=== PATIENT | male | born 1995 ===

== ENCOUNTER 2019-01-15 13:10 | Emergency (ER) | payer MEDICAID, OTHER ==
--- NOTE | 2019-01-15 14:54 | ED PDOC ---
HPI: Abdomen Additional Complaint(s): 12:22pm: PA review done on CT scan results, Pt called twice unsuccessfully including next of kins, left message with call back information to notify pt of official CT results. <Trinidad Kimball - Last Filed: 01/16/19 12:21> Chief Complaint (Provider): Abdominal Pain History Per: Patient History/Exam Limitations: no limitations Onset/Duration Of Symptoms: Days (x2) Current Symptoms Are (Timing): Still Present Location Of Pain/Discomfort: RLQ, LLQ Quality Of Discomfort: Cramping Associated Symptoms: Diarrhea Additional Complaint(s): 23 y/o male with a PMHx of Asthma presents to the ED for evaluation of abdominal pain associated with diarrhea, onset two days ago. Patient reports symptoms initially began with diarrhea. Patient describes diarrhea as occasionally watery and occasionally dry. Patient describes abdominal pain as intermittent and cramping. Patient notes pain worsens with using the restroom. Patient reports of being evaluated at [facility] for the same symptoms yesterday and states he was not told his blood work results and only given 2 IVs and discharged home with a prescription of Pepcid. Of note, patient reports of trying duck for the first time cooked medium well on . Patient denies any vomiting and taking any medications for symptom relief including prescribed pepcid. PMD: none provided <Hector Calero - Last Filed: 01/16/19 18:23> Time Seen by Provider: 01/15/19 14:37 Chief Complaint (Nursing): Abdominal Pain Past Medical History Vital Signs: Last Vital Signs Temp 98.0 F 01/15/19 22:20 Pulse 75 01/15/19 22:20 Resp 15 01/15/19 22:20 BP 129/83 01/15/19 22:20 Pulse Ox 100 01/15/19 22:20 <Trinidad Kimball - Last Filed: 01/16/19 12:21> Reviewed: Historical Data, Nursing Documentation, Vital Signs Vital Signs: Last Vital Signs Temp 99 F 01/15/19 14:02 Pulse 88 01/15/19 14:02 Resp 18 01/15/19 14:02 BP 96/65 L 01/15/19 14:02 Pulse Ox 97 01/15/19 14:02 - Medical History PMH: Asthma Denies: Chronic Kidney Disease - Surgical History Surgical History: No Surg Hx - Family History Family History: States: Unknown Family Hx - Living Arrangements Living Arrangements: With Family <Hector Calero - Last Filed: 01/16/19 18:23> - Home Medications Home Medications: Ambulatory Orders Medication Instructions Recorded Ciprofloxacin HCl [Cipro] 500 mg PO BID #6 tablet 01/15/19 Dicyclomine [Dicyclomine HCl] 10 mg PO TID #15 cap 01/15/19 - Allergies Allergies/Adverse Reactions: Allergies Allergy/AdvReac Type Severity Reaction Status Date / Time No Known Allergies Allergy Verified 01/15/19 14:02 Review of Systems ROS Statement: Except As Marked, All Systems Reviewed And Found Negative Gastrointestinal: Positive for: Abdominal Pain, Diarrhea. Negative for: Vomiting <Hector Calero - Last Filed: 01/16/19 18:23> Physical Exam - Reviewed Nursing Documentation Reviewed: Yes Vital Signs Reviewed: Yes - Physical Exam Appears: Positive for: No Acute Distress Head Exam: Positive for: ATRAUMATIC, NORMOCEPHALIC Skin: Positive for: Normal Color, Warm, Dry Eye Exam: Positive for: Normal appearance, EOMI, PERRL Neck: Positive for: Normal, Painless ROM Cardiovascular/Chest: Positive for: Regular Rate, Rhythm. Negative for: Murmur Respiratory: Positive for: Normal Breath Sounds. Negative for: Respiratory Distress Gastrointestinal/Abdominal: Positive for: Tenderness (mild lower abdominal tenderness) Extremity: Positive for: Normal ROM. Negative for: Deformity Neurological/Psych: Positive for: Awake, Alert, Oriented. Negative for: Motor/Sensory Deficits <Hector Calero A - Last Filed: 01/16/19 18:23> - Laboratory Results Result Diagrams: 01/15/19 15:10 01/15/19 15:10 Lab Results: Total Bilirubin 0.8 mg/dl (0.2-1.3) 01/15/19 15:10 AST 68 U/L (17-59) H 01/15/19 15:10 ALT 56 U/L (21-72) 01/15/19 15:10 Alkaline Phosphatase 83 U/L (38-126) 01/15/19 15:10 Total Protein 7.7 G/DL (6.3-8.2) 01/15/19 15:10 Albumin 4.3 g/dL (3.5-5.0) 01/15/19 15:10 Globulin 3.4 gm/dL (2.2-3.9) 01/15/19 15:10 Albumin/Globulin Ratio 1.3 (1.0-2.1) 01/15/19 15:10 Lipase 91 U/L (23-300) 01/15/19 15:10 <Trinidad Kimball - Last Filed: 01/16/19 12:21> - Laboratory Results Result Diagrams: 01/15/19 15:10 01/15/19 15:10 - ECG O2 Sat by Pulse Oximetry: 97 (RA) Pulse Ox Interpretation: Normal - Progress Re-evaluation Time: 22:00 Condition: Re-examined, Improved <Hector Calero Terrie - Last Filed: 01/16/19 18:23> Medical Decision Making Medical Decision Making: Time: 1457 Impression: Abdominal pain and diarrhea Differentials include but not limited to acute gastroenteritis, colitis and diverticulitis Time: 2113 CT abdomen and pelvis FINDINGS: LUNG BASES: The lung bases appear clear. No pleural effusions are seen. LIVER: Unremarkable. GALLBLADDER AND BILE DUCTS: The gallbladder appears within normal limits. No radioopaque gallstones are s een. No biliary ductal dilatation is evident. PANCREAS: Unremarkable. SPLEEN: Unremarkable. ADRENAL GLANDS: Unremarkable. KIDNEYS, URETERS, AND BLADDER: The kidneys appear within normal limits. There is no hydronephrosis or hydroureter. No urinary calculi are seen. The urinary bladder appeared normal in size and configuration. STOMACH AND BOWEL: Unremarkable appearance of the stomach. No evidence of bowel obstruction. No evidence suggesting enteritis. Mucosal wall thickening is noted throughout the colon extending into the rectum compatible with diffuse colitis/proctitis. Infectious or inflammatory etiologies are thought most likely. APPENDIX: Unremarkable. PERITONEUM: No free fluid. No free air. LYMPH NODES: No lymphadenopathy is evident. REPRODUCTIVE: Unremarkable as visualized. VASCULATURE: No evidence of abdominal aortic aneurysm. BONES: No aggressive appearing osseous lesion. No acute osseous pathology evident. IMPRESSION: Evidence of diffuse colitis/proctitis. Scribe Attestation: Documented by Nuha Mckeon, acting as a scribe Rafat Calero MD. Provider Scribe Attestation: All medical record entries made by the Scribe were at my direction and personally dictated by me. I have reviewed the chart and agree that the record accurately reflects my personal performance of the history, physical exam, medical decision making, and the department course for this patient. I have also personally directed, reviewed, and agree with the discharge instructions and disposition. <Hector Calero - Last Filed: 01/16/19 18:23> Disposition <Trinidad Kimball - Last Filed: 01/16/19 12:21> - Patient ED Disposition Is Patient to be Admitted: No Doctor Will See Patient In The: Office Counseled Patient/Family Regarding: Studies Performed, Diagnosis, Need For Followup - Disposition Disposition: Routine/Home Disposition Time: 22:02 <Hector Calero - Last Filed: 01/16/19 18:23> - Clinical Impression Clinical Impression: Colitis - Disposition Referrals: [facility] [Outside] Condition: GOOD Additional Instructions: GARRY TOWNSEND, thank you for letting us take care of you today. Your provider was Hector Calero MD and you were treated for ABD PAIN. The emergency medical care you received today was directed at your acute symptoms. If you were prescribed any medication, please fill it and take as directed. It may take several days for your symptoms to resolve. Return to the Emergency Department if your symptoms worsen, do not improve, or if you have any other problems. Please contact your doctor or call one of the physicians/clinics you have been r eferred to that are listed on the Patient Visit Information form that is included in your discharge packet. Bring any paperwork you were given at discharge with you along with any medications you are taking to your follow up visit. Our treatment cannot replace ongoing medical care by a primary care provider outside of the emergency department. Thank you for allowing the [facility] team to be part of your care today. If you had an X-Ray or CT scan: A Radiologist will review the ED reading if any change in treatment is needed we will contact you. If you had a blood, urine, or wound culture: It will take several days for the results, if any change in treatment is needed we will contact you. If you had an STI test: It will take 48 hours for the results. Please call after 1 week if you have not heard back. Prescriptions: Ciprofloxacin HCl [Cipro] 500 mg PO BID #6 tablet Dicyclomine [Dicyclomine HCl] 10 mg PO TID #15 cap Instructions: Colitis
[2019-01-15] MEDS ORDERED: Sodium Chloride 0.9% 1,000 ML IV STA (15:00)
[2019-01-15 15:47] LABS: BASO % 0.3 % (0.0-2.0); EOS # 0.4 K/uL (0.0-0.7); EOS % 4.4 % (0.0-4.0); HEMOGLOBIN 15.6 g/dL (12.0-18.0); LYMPH # 1.4 K/uL (1.0-4.3); LYMPH % 15.8 % (20.0-40.0); MEAN CELL VOLUME 88.9 fl (80.0-94.0); MEAN CORPUSCULAR HEMOGLOBIN 29.8 pg (27.0-31.0); MEAN CORPUSCULAR HGB CONC 33.5 g/dL (33.0-37.0); MEAN PLATELET VOLUME 9.2 fl (7.2-11.7); MONO # 0.8 K/uL (0.0-0.8); MONO % 8.9 % (0.0-10.0); NEUT # 6.4 K/uL (1.8-7.0); NEUT % 70.6 % (50.0-75.0); NRBC % 0.1 % (0.0-0.0); RBC 5.23 Mil/uL (4.40-5.90); RED CELL DISTRIBUTION WIDTH 13.2 % (11.5-14.5); WHITE BLOOD COUNT 9.1 K/uL (4.8-10.8)
[2019-01-15 15:56] LABS: ALB/GLOB RATIO 1.3 (1.0-2.1); ALBUMIN 4.3 g/dL (3.5-5.0); ALT/SGPT 56 U/L (21-72); AST/SGOT 68 U/L (17-59); BLOOD UREA NITROGEN 18 mg/dl (9-20); CALCIUM 9.3 mg/dL (8.4-10.2); GFR NON-AFRICAN AMERICAN > 60; LIPASE 91 U/L (23-300)
[2019-01-15] MEDS ORDERED: Iohexol 240 (50 ml) PO ONE (17:03)
[2019-01-15] MEDS ORDERED: Iohexol 240 (50 ml) ONE (17:33)
[2019-01-15] MEDS ORDERED: Iohexol 300 100 ML IJ ONE (19:57)
[2019-01-15] MEDS ORDERED: Sodium Chloride 0.9% 100 ML ONE (19:57)
[2019-01-15 22:20] VITALS: BP 129/83; PULSE 75; RESP 15; TEMP 98
--- NOTE | 2019-01-16 11:49 | CT ---
Date of service: 01/15/2019 PROCEDURE: CT Abdomen and Pelvis with contrast HISTORY: lower abdominal pain COMPARISON: 2012 TECHNIQUE: Contrast dose: 90 milliliters Radiation dose: Total exam DLP = 254.34 mGy-cm. This CT exam was performed using one or more of the following dose reduction techniques: Automated exposure control, adjustment of the mA and/or kV according to patient size, and/or use of iterative reconstruction technique. FINDINGS: LOWER THORAX: Unremarkable. LIVER: Liver is slightly fatty infiltrated, without evidence of focal mass or intrahepatic ductal dilatation. GALLBLADDER AND BILE DUCTS: Unremarkable. PANCREAS: Unremarkable. No gross lesion or ductal dilatation. SPLEEN: Unremarkable. ADRENALS: Unremarkable. No mass. KIDNEYS AND URETERS: Unremarkable. No hydronephrosis. No solid mass. VASCULATURE: Unremarkable. No aortic aneurysm. No aortic atherosclerotic calcification or mural plaque present. BOWEL: There is evidence of nonspecific diffuse colonic wall thickening with mild pericolonic inflammatory changes suspicious for colitis of either infectious or inflammatory etiology. There is also some subtle mild fold thickening of the small bowel without significant distention or dilatation. Mild amount of superimposed enteritis is not excluded. Terminal ileum is unremarkable. APPENDIX: The appendix is mildly distended with fluid with mild possible appendiceal wall enhancement and adjacent enhancement/inflammatory change. This may suggest early appendicitis. Correlation with symptoms would be suggested. Appendix measures 7-8 millimeters in maximal diameter. PERITONEUM: There may be some minimal fluid seen within the posterior pelvis. LYMPH NODES: Unremarkable. No enlarged lymph nodes. BLADDER: Unremarkable. REPRODUCTIVE: Unremarkable. BONES: No acute fracture. OTHER FINDINGS: None. IMPRESSION: Non-specific colitis of either infectious or inflammatory etiology with diffuse colonic wall thickening and mild pericolonic inflammatory changes noted. In addition the appendix is distended with fluid with mild possible periappendiceal change and enhancement of the wall. Early appendicitis is suspected. Correlation with symptoms, exam, and laboratory values is suggested. This last finding was not mentioned on the preliminary report. This case will be placed into the PA review folder. PA in the emergency room was notified of the findings.
[2019-01-16 18:23] VITALS: O2SAT 97
--- NOTE | 2019-01-16 19:51 | ED PDOC ---
HPI: Abdomen Time Seen by Provider: 01/15/19 14:37 Chief Complaint (Nursing): Abdominal Pain Chief Complaint (Provider): Abdominal Pain History Per: Patient History/Exam Limitations: no limitations Onset/Duration Of Symptoms: Days (x2) Past Medical History Vital Signs: Last Vital Signs Temp 98.0 F 01/15/19 22:20 Pulse 75 01/15/19 22:20 Resp 15 01/15/19 22:20 BP 129/83 01/15/19 22:20 Pulse Ox 97 01/16/19 18:23 - Medical History PMH: Asthma Denies: Chronic Kidney Disease - Surgical History Surgical History: No Surg Hx - Family History Family History: States: Unknown Family Hx - Home Medications Home Medications: Ambulatory Orders Medication Instructions Recorded Ciprofloxacin HCl [Cipro] 500 mg PO BID #6 tablet 01/15/19 Dicyclomine [Dicyclomine HCl] 10 mg PO TID #15 cap 01/15/19 - Allergies Allergies/Adverse Reactions: Allergies Allergy/AdvReac Type Severity Reaction Status Date / Time No Known Allergies Allergy Verified 01/15/19 14:02 - Laboratory Results Result Diagrams: 01/15/19 15:10 01/15/19 15:10 Lab Results: Total Bilirubin 0.8 mg/dl (0.2-1.3) 01/15/19 15:10 AST 68 U/L (17-59) H 01/15/19 15:10 ALT 56 U/L (21-72) 01/15/19 15:10 Alkaline Phosphatase 83 U/L (38-126) 01/15/19 15:10 Total Protein 7.7 G/DL (6.3-8.2) 01/15/19 15:10 Albumin 4.3 g/dL (3.5-5.0) 01/15/19 15:10 Globulin 3.4 gm/dL (2.2-3.9) 01/15/19 15:10 Albumin/Globulin Ratio 1.3 (1.0-2.1) 01/15/19 15:10 Lipase 91 U/L (23-300) 01/15/19 15:10 - ECG O2 Sat by Pulse Oximetry: 97 (RA) Medical Decision Making Medical Decision Makin:50: Spoke to pt informed of CT scan reports, pt instructed to return to ED as soon as possible for poss sx consult. Disposition - Clinical Impression Clinical Impression: Colitis - Disposition Referrals: [facility] [Outside] Disposition: Routine/Home Disposition Time: 22:02 Condition: GOOD Additional Instructions: GARRY TOWNSEND, thank you for letting us take care of you today. Your provider was Hector Calero MD and you were treated for ABD PAIN. The emergency medical care you received today was directed at your acute symptoms. If you were prescribed any medication, please fill it and take as directed. It may take several days for your symptoms to resolve. Return to the Emergency Department if your symptoms worsen, do not improve, or if you have any other problems. Please contact your doctor or call one of the physicians/clinics you have been referred to that are listed on the Patient Visit Information form that is included in your discharge packet. Bring any paperwork you were given at discharge with you along with any medications you are taking to your follow up visit. Our treatment cannot replace ongoing medical care by a primary care provider outside of the emergency department. [facility] you [facility] to be part of your care today. If you had an X-Ray or CT scan: A Radiologist will review the ED reading if any change in treatment is needed we will contact you. If you had a blood, urine, or wound culture: It will take several days for the results, if any change in treatment is needed we will contact you. If you had an STI test: It will take 48 hours for the results. Please call after 1 week if you have not heard back. Prescriptions: Ciprofloxacin HCl [Cipro] 500 mg PO BID #6 tablet Dicyclomine [Dicyclomine HCl] 10 mg PO TID #15 cap Instructions: Colitis
== END 2019-01-15 22:20 | disposition home or self-care (01) ==
LOC: H.ER 13:10
DX: K52.9 Noninfective gastroenteritis and colitis, unspecified (principal); J45.909 Unspecified asthma, uncomplicated
CPT/HCPCS: 74177; 80053; 83690; 85025; 96374; 99285; J2270; J7030; Q9966; Q9967